=== PATIENT | male | born 1990 | race Caucasian/White ===

== ENCOUNTER 2021-01-17 07:16 | Emergency (ER) | payer SELFPAY ==
[~2021-01-17] VITALS: Ht 170.2 cm; Wt 73.9 kg
--- NOTE | 2021-01-17 07:16 | NUR ---
PT [address]IB[address] C/O OVERDOSE ON UNKNOWN DRUG NARCAN GIVEN DIRECTOR COUNCIL ON AGING NO EFFECT. PT IS AAOX1, NOT IN RESPIRATORY DISTRESS, HOOKED TO WEB DESIGN INSTRUCTOR, KEPT RESTED AND COMFORTABLE. WILL CONTINUE TO MONITOR.
--- NOTE | 2021-01-17 07:29 | NUR ---
SEEN AND EXAMINED BY .
--- NOTE | 2021-01-17 07:34 | NUR ---
ER PHLEB AT BEDSIDE FOR BLOOD DRAW.
--- NOTE | 2021-01-17 07:50 | NUR ---
IV LINE ESTABLISHED BLOOD DRAWN AND SENT TO LAB.
[2021-01-17 08:08] LABS: BASOPHILS % (AUTO) 0.7 % (0.0-2.0); EOSINOPHILS % (AUTO) 2.3 % (0.0-6.0); HEMATOCRIT 40 % (39-51); HEMOGLOBIN 12.8 g/dL (13.5-17.5); LYMPHOCYTES # (AUTO) 1.1 K/uL (0.8-4.8); LYMPHOCYTES % (AUTO) 18.4 % (20.0-44.0); MEAN CORPUSCULAR HGB CONC 32 g/dl (31.0-36.0); MEAN CORPUSCULAR VOLUME 81 fL (80-96); MONOCYTES # (AUTO) 0.6 K/uL (0.1-1.30); MONOCYTES % (AUTO) 10.8 % (2.0-12.0); NEUTROPHILS # (AUTO) 3.9 K/uL (1.8-8.9); NEUTROPHILS % (AUTO) 67.8 % (43.0-81.0); PLATELET COUNT (AUTO) 332 K/uL (150-450); RED BLOOD CELL COUNT(AUTO) 4.88 MIL/uL (4.5-6.0); WHITE BLOOD COUNT (AUTO) 5.8 K/uL (4.3-11.0)
[2021-01-17 08:09] LABS: CARBON DIOXIDE 23 mmol/L (21-32); CHLORIDE 103 mmol/L (98-107); CREATININE 1.3 mg/dL (0.6-1.3); GLUCOSE 88 mg/dL (74-106); POTASSIUM 3.6 mmol/L (3.5-5.1); SODIUM SERUM 140 mmol/L (136-145); UREA NITROGEN, BLOOD 9 mg/dL (7-18)
[2021-01-17 08:14] LABS: ACETAMINOPHEN 0 ug/ml (10-30); ALANINE AMINOTRANSFERASE 14 U/L (12-78); ALBUMIN 3.5 g/dL (3.4-5.0); ALCOHOL, BLOOD < 3 mg/dL (0-0); ALKALINE PHOSPHATASE 68 U/L (46-116); ASPARTATE AMINOTRANSFERASE 17 U/L (15-37); BILIRUBIN,DIRECT 0.1 mg/dL (0.0-0.2); BILIRUBIN,TOTAL 0.3 mg/dL (0.2-1.0); TOTAL PROTEIN, SERUM 7.5 g/dL (6.4-8.2)
--- NOTE | 2021-01-17 09:25 | NUR ---
PT AWAKE AND ALERT, NOT IN RESPIRATORY DISTRESS, V/S STABLE, KEPT RESTED AND COMFORTABLE. WILL CONTINUE TO MONITOR.
--- NOTE | 2021-01-17 09:30 | NUR ---
URINE SPECIMEN COLLECTED AND SENT TO LAB.
[2021-01-17 09:40] LABS: BILIRUBIN,URINE Negative (NEGATIVE); COLOR,URINE YELLOW (YELLOW); LEUKOCYTE ESTERASE ,URINE Negative (NEGATIVE); NITRITE, URINE Negative (NEGATIVE); PROTEIN,URINE 30 mg/dl (NEGATIVE); UGLUCOSE Negative (NEGATIVE)
[2021-01-17 10:03] LABS: RBC,URINE NONE SEEN /HPF (0-2)
[2021-01-17 10:04] LABS: BACTERIA,URINE Rare /HPF (None Seen); SQUAMOUS EPITHELIAL CELL,UR Rare /HPF (None Seen)
--- NOTE | 2021-01-17 12:15 | NUR ---
Legislators consult: emergency services director consult requested for substance use. Patient is a 30-year-old, male. SW met with patient at his bedside in the emergency department. Patient was calm and eating his lunch upon arrival. Patient was alert and oriented x3, person, time and place. Patient was unable to recall the situation which brought him to the hospital. Per chart, patient was brought in by ambulance from the street on 01/17/21 for an overdose. Patient stated that he currently lives at [address] [place] [address], [facility] with his significant other. SW asked the patient if he currently has access to social support and patient stated that he has support from his significant other. Patient reported that his current source of income is food stamps and [employer]. SW asked the patient about his history of substance use and patient reported alcohol use from months ago and reported methamphetamine use from a month ago. Per toxicology report, patient is positive for cocaine and amphetamine use. SW assessed patients history of mental illness and patient denied history. Patient denied current suicidal and homicidal ideation. MURIEL offered the patient substance use resources. Patient accepted the resources and thanked MURIEL. MURIEL discussed discharge plans with the patient. Patient stated that he can use public transportation to return to his prior living arrangement. Patient asked SW if he could receive bus directions to his residence. SW provided the patient with bus directions to his residence and notified ED RN Ace that the patient would need a TAP card, per patient request. ED RN Ace will follow up. PLAN: Patient will return to his prior living arrangement. No further SS intervention at this time, however, SW will remain available as needed. RESOURCES: Substance use resources provided included: [facility] Substance Abuse Self-Helpline ([facility]) ; [facility] [id number] [facility] [address] ; [facility] [address] [facility] [address] ; [facility] [address] [facility] [address] ; [facility] [address] [facility] [address] ; [facility] [address] [facility] [address] ; [facility]; [facility] [place]; [facility] [place]; [facility]
--- NOTE | 2021-01-17 19:13 | NUR ---
REC'D REPORT FROM MELANIE MCCORMACK FOR ANA
--- NOTE | 2021-01-17 23:05 | NUR ---
PT OK TO DISCHARGE PER DR MENDOSA. Patient discharged to home in stable condition. Written and verbal after care instructions given. Patient verbalizes understanding of instruction.Patient is awake and alert to self, day, and place. PT ambulatory with a steady gait
[2021-01-17 23:06] VITALS: BP 121/75
== END 2021-01-17 23:06 | disposition home or self-care (01) ==
LOC: ER 07:16
DX: F14.10 Cocaine abuse, uncomplicated (principal); F15.10 Other stimulant abuse, uncomplicated; R41.0 Disorientation, unspecified
CPT/HCPCS: 36415; 80048-TC; 80076-TC; 81001; 85025-TC; G0480